=== PATIENT | male | born 1950 | race Caucasian/White ===

== ENCOUNTER 2016-09-23 08:07 | Day surgery (SDC) | payer MEDICARE, OTHER ==
[2016-09-23] MEDS ORDERED: ONDANSETRON HCL 4 MG/2 ML SOL ONE (08:16)
[2016-09-23] MEDS ORDERED: METOCLOPRAMIDE HYDROCHLORIDE 5 MG/ML SOL ONE (08:16)
[2016-09-23] MEDS ORDERED: LIDOCAINE HCL 1% MPF SOL ONE (08:16)
[2016-09-23] MEDS ORDERED: PROPOFOL 10 MG/ML EMU IV ONE (08:16)
[2016-09-23] MEDS ORDERED: MIDAZOLAM 2 MG/2 ML SOL ONE (08:17)
[2016-09-23] MEDS ORDERED: FENTANYL CITRATE 50 MCG/ML SOL ONE ×2 (08:17→09:35)
[2016-09-23] MEDS ORDERED: BUPIVACAINE HCL 0.25% MPF 10 ML SOL INFIL ONE ×2 (09:05→09:06)
[2016-09-23] MEDS ORDERED: KETOROLAC TROMETHAMINE 30 MG/ML SOL ONE (10:36)
[2016-09-23 11:22] VITALS: TEMP 97.4
[2016-09-23 11:55] VITALS: RESP 18
[2016-09-23 12:11] VITALS: BP 138/83; PULSE 81; O2SAT 96
== END 2016-09-23 12:52 | disposition home or self-care (01) | DRG 563 ==
LOC: SURG 08:07
PROVIDERS: ATTEND Orthopaedic Surgery
DX: S83.271A Complex tear of lateral meniscus, current injury, right knee, initial encounter (principal); M23.000 Cystic meniscus, unspecified lateral meniscus, right knee
CPT/HCPCS: J1885; J2250; J2405; J2765; J3010; J2001; J2704

== ENCOUNTER 2016-10-03 12:10 | Emergency (ER) | payer MEDICARE, OTHER ==
[2016-10-03 12:30] VITALS: BP 142/91; PULSE 79; RESP 18; TEMP 97; O2SAT 98
== END 2016-10-03 13:24 | disposition home or self-care (01) | DRG 392 ==
LOC: ED 12:10
DX: K59.00 Constipation, unspecified (principal)
CPT/HCPCS: 74020; 99282

== ENCOUNTER 2016-11-04 12:13 | Outpatient (CLI) | payer MEDICARE, OTHER ==
[2016-10-03 12:30] VITALS: O2SAT 98
== END 2016-11-04 12:14 | disposition home or self-care (01) | DRG 556 ==
LOC: CONVCARE 12:13
PROVIDERS: ATTEND Orthopaedic Surgery
DX: M25.661 Stiffness of right knee, not elsewhere classified (principal); M17.11 Unilateral primary osteoarthritis, right knee; Z98.890 Other specified postprocedural states

== ENCOUNTER 2017-06-23 16:32 | Outpatient (CLI) | payer MEDICARE, OTHER ==
[2016-10-03 12:30] VITALS: O2SAT 98
== END 2017-06-23 16:33 | disposition home or self-care (01) | DRG 554 ==
LOC: CONVCARE 16:32
PROVIDERS: ATTEND Orthopaedic Surgery
DX: M17.11 Unilateral primary osteoarthritis, right knee (principal)
CPT/HCPCS: 73562

== ENCOUNTER 2018-03-01 08:40 | Day surgery (SDC) | payer MEDICARE, OTHER ==
[~2018-03-01 08:40] MED LIST: PROPOFOL 500 MG/50 ML EMU IV ONE
[2018-03-01 10:05] VITALS: TEMP 97.2
[2018-03-01 10:33] VITALS: BP 122/82; PULSE 66; RESP 20; O2SAT 96
== END 2018-03-01 10:45 | disposition home or self-care (01) | DRG 951 ==
LOC: SURG 08:40
PROVIDERS: ATTEND Surgery
DX: Z12.11 Encounter for screening for malignant neoplasm of colon (principal); Z86.010 Personal history of colon polyps
CPT/HCPCS: J2704